=== PATIENT | male | born 1965 | race Caucasian/White ===

== ENCOUNTER 2021-02-25 09:12 | Emergency (ER) | payer BC, OTHER ==
[2021-02-25 09:33] VITALS: BP 166/94
[2021-02-25] MEDS ORDERED: ACETAMINOPHEN 325 MG TABLET PO STA (09:46)
--- NOTE | 2021-02-25 10:18 | XRAY Report ---
PROCEDURE: Foot 3 View LT INDICATIONS: L heel pain since last night "snap" TECHNIQUE: 3 views of the foot were acquired. COMPARISON: None FINDINGS: Bones: No fractures or dislocations. No suspicious bony lesions. Severe first MTP degenerative parish nge. Soft tissues: No tibiotalar joint effusion. Achilles tendon appears thickened. IMPRESSION: 1. Achilles appears thickened. 2. No fractures or dislocations seen. 3. Severe first MTP degenerative change. Reviewed by: Uriah Gallegos MD on 02/25/2021 9:17 AM OSKAR Approved by: Uriah Gallegos MD on 02/25/2021 9:17 AM OSKAR Station ID: [id number]
--- NOTE | 2021-02-25 10:39 | ED Physician Documentation ---
History of Present Illness - Stated complaint Stated Complaint: LT HEEL INJURY - Chief complaint Chief Complaint: Trauma Ext - History obtained from History obtained from: Patient - Additonal information Additional information: 55-year-old man without prior injury to the left heel presents with sudden onset pain that is sharp, associated with a popping sensation while dancing last night. He is able to bear weight on the heel with significant pain. It is constant, aching, moderate severity, worse with weightbearing. Denies other injury.Denies recent antibiotic use Review of Systems Musculoskeletal: reports: Extremity pain PD PAST MEDICAL HISTORY - Past Medical History Past Medical History: No - Past Surgical History Past Surgical History: No - Allergies Allergies/Adverse Reactions: Allergies Allergy/AdvReac Type Severity Reaction Status Date / Time No Known Drug Allergies Allergy Verified 02/25/21 09:33 - Social History Does the pt smoke?: No Smoking Status: Never smoker Does the pt drink ETOH?: Yes ETOH Use: Wine Does the pt have substance abuse?: No - Immunizations Immunizations are current?: Yes PD ED PE NORMAL - Vitals Vital signs reviewed: Yes - General General: Alert and oriented X 3, No acute distress, Well developed/nourished - HEENT HEENT: Atraumatic, PERRL, EOMI - Derm Derm: Normal color, Warm and dry - Extremities Extremities: No deformity, Normal ROM s pain, Other (Discomfort with left heel flexion but patient has retained motor control, strength, sensation.2+ BL DP,PT pulses) - Neuro Neuro: Alert and oriented X 3, No motor deficit, No sensory deficit Results - Vitals Vitals: Vital Signs - 24 hr 02/25/21 09:30 Temperature 36.6 C Heart Rate 63 Respiratory 16 Rate Blood Pressure 166/94 H O2 Saturation 99 Oxygen O2 Source Room air PD MEDICAL DECISION MAKING - ED course ED course: 55-year-old man Presented with abrupt onset Achilles tendon pain while dancing yesterday, without apparent injury on x-ray. It is likely has some mild tendon injury, however he still has full functional use of the ankle and foot, therefore will we will employ conservative measures for now and have him follow- up with his primary doctor for referral for MRI and orthopedics as needed. Return precautions given. Education given. Impression 1. achilles tendonitis Departure - Departure Disposition: 01 Home, Self Care Condition: Good Instructions: Achilles Tendonitis, ED SHAMAR Follow-Up: Eric Peterson MD [Provider Admit Priv/Credential] - Comments: You were seen in the emergency department for Achilles tendon pain. You may have a partial rupture of your Achilles, however your physical exam is not showing significant deficits. This is reassuring, and points to likely tendinitis rather than rupture. Make sure that you follow the conservative measures that we discussed, and if you do not have improvement in 72 hours and follow-up with your primary doctor for referral to orthopedics for possible MRI. Return to the emergency department if you have any new or worsening symptoms or other concerns.
== END 2021-02-25 11:22 | disposition home or self-care (01) ==
LOC: ED 09:12
DX: M76.62 Achilles tendinitis, left leg (principal)
CPT/HCPCS: 73630; 99281; 99283; A9270